=== PATIENT | male | born 1940 | race Caucasian/White ===

== ENCOUNTER 2017-01-26 22:17 | Emergency (ER) | payer OTHER, BC ==
[~2017-01-26] VITALS: Ht 175.3 cm; Wt 94.3 kg
[~2017-01-26 22:17] MED LIST: Ativan PO; Corgard PO; Ecotrin PO; GLIPIZIDE ER2.5 M1 PO; HYTRIN2 MG PO; LOTREL 10/21 CAPSULE PO; Lipitor PO; Osteo-Biflex,Flex-A- PO; Percocet 5/325,Endoc PO; THERAGRAN1 TABLET PO; Tricor PO; VITAMIN D1000 INTUN PO; ZETIA10 MG PO
[2017-01-26 23:08] LABS: HEMATOCRIT 38.9 % (38.0-50.0); MCH 30.3 PG (29.0-34.0); MCHC 34.7 G/DL (30.0-36.0); MCV 87.2 FL (86-99); MEAN PLAT.VOLUME 10.5 uM^3 (9.0-12.4); PLATELET COUNT 171 K/uL (156-360); RBC DIS.WIDTH-CV 14.5 % (11.8-14.6); RBC DIS.WIDTH-SD 46.6 % (39-53); RED BLOOD COUNT 4.46 M/uL (4.00-5.50); WHITE BLOOD COUNT 8.5 K/uL (4.1-10.2)
[2017-01-26 23:19] LABS: CHLORIDE 106 mEq/L (99-109); POTASSIUM 3.2 mEq/L (3.7-5.4); SODIUM 140 mEq/L (136-147)
[2017-01-26 23:21] LABS: GLUCOSE 116 mg/dL (70-99)
[2017-01-26 23:22] LABS: ANION GAP 10 MEQ/L (2-14)
[2017-01-26 23:24] LABS: GFR ESTIMATE (CALCULATED) 29 mL/min/ (58.99-99999)
[2017-01-26 23:25] LABS: UREA NITROGEN (BUN) 41 mg/dL (9-23)
[2017-01-27 01:30] VITALS: BP 165/57
== END 2017-01-27 01:45 | disposition home or self-care (01) ==
LOC: EME 22:17
DX: I12.9 Hypertensive chronic kidney disease with stage 1 through stage 4 chronic kidney disease, or unspecified chronic kidney disease (principal); N18.9 Chronic kidney disease, unspecified; E11.22 Type 2 diabetes mellitus with diabetic chronic kidney disease; K21.9 Gastro-esophageal reflux disease without esophagitis; Z79.84 Long term (current) use of oral hypoglycemic drugs
CPT/HCPCS: 80048; 85027; 93005

== ENCOUNTER 2017-02-19 14:45 | Emergency (ER) | payer OTHER, BC ==
[~2017-02-19] VITALS: Ht 175.3 cm; Wt 93.2 kg
[2017-02-19 16:54] LABS: HEMATOCRIT 41.8 % (38.0-50.0); HEMOGLOBIN 14.2 G/DL (12.5-16.6); MCH 30.3 PG (29.0-34.0); MCV 89.3 FL (86-99); PLATELET COUNT 197 K/uL (156-360); RBC DIS.WIDTH-CV 14.7 % (11.8-14.6); RBC DIS.WIDTH-SD 48.4 % (39-53); RED BLOOD COUNT 4.68 M/uL (4.00-5.50)
[2017-02-19 17:02] LABS: ALBUMIN 3.3 g/dL (3.2-4.8)
[2017-02-19 17:03] LABS: CHLORIDE 106 mEq/L (99-109); POTASSIUM 4.1 mEq/L (3.7-5.4); SODIUM 143 mEq/L (136-147)
[2017-02-19 17:05] LABS: GLUCOSE 158 mg/dL (70-99); TOTAL PROTEIN 6.8 g/dL (6.4-8.3)
[2017-02-19 17:07] LABS: TOTAL BILIRUBIN 0.3 mg/dL (0.0-1.0)
[2017-02-19 17:08] LABS: APPEARANCE CLEAR ((CLEAR)); BILIRUBIN NEGATIVE; BLOOD NEGATIVE; COLOR YELLOW ((YELLOW)); GLUCOSE (STRIP) 150; KETONES NEGATIVE; LEUKOCYTES NEGATIVE; NITRITE NEGATIVE; PROTEIN (STRIP) >=500; SPECIFIC GRAVITY 1.019 (1.000-1.030); UROBILINOGEN 0.2 MG/DL (0.2-1.0)
[2017-02-19 17:08] LABS: ALKALINE PHOSPHATASE 85 IU/L (3-129)
[2017-02-19 17:09] LABS: CREATININE 3.1 mg/dL (0.6-1.3); GFR ESTIMATE (CALCULATED) 21 mL/min/ (58.99-99999)
[2017-02-19 17:10] LABS: AST (GOT) 18 IU/L (2-34); UREA NITROGEN (BUN) 42 mg/dL (9-23)
[2017-02-19 17:11] LABS: ALT (GPT) 24 IU/L (3-49)
[2017-02-19 17:18] LABS: BACTERIA RARE /HPF; EPITHELIAL CELLS RARE /HPF; HYALINE CASTS 15-20 /LPF; MUCUS TRACE /LPF; RED BLOOD CELLS 0-5 /HPF (0-5); UCUL ADDED? NO; WHITE BLOOD CELLS 0-5 /HPF (0-5)
[2017-02-19 20:58] VITALS: BP 168/50
== END 2017-02-19 20:59 | disposition home or self-care (01) ==
LOC: EME 14:45
DX: N28.9 Disorder of kidney and ureter, unspecified (principal); R53.1 Weakness; T50.905A Adverse effect of unspecified drugs, medicaments and biological substances, initial encounter; R29.6 Repeated falls; E11.9 Type 2 diabetes mellitus without complications; I10 Essential (primary) hypertension; K21.9 Gastro-esophageal reflux disease without esophagitis; Z85.46 Personal history of malignant neoplasm of prostate
CPT/HCPCS: 80053; 81003; 85027; 99281; 99284